=== PATIENT | female | born 1965 | race African-American/Black ===

== ENCOUNTER 2016-08-16 08:43 | Emergency (ER) | payer SELFPAY ==
[~2016-08-16] VITALS: Ht 149.9 cm; Wt 59.4 kg
[~2016-08-16 08:43] MED LIST: CLON.1 PO; NORV10TA PO; NORV5TAB PO
[2016-08-16 08:49] VITALS: BP 164/106; PULSE 78; RESP 16; TEMP 99; O2SAT 99
[2016-08-16] MEDS ORDERED: CLON0.1T PO (08:55)
[2016-08-16] MEDS ORDERED: AMLO10 PO (08:55)
[2016-08-16] MEDS ORDERED: SODIUM CHLOR 0.9% 1000 ML INJ 1,000 ML IV SCH (09:08)
[2016-08-16] MEDS ORDERED: ONDANSETRON HCL 4 MG/2 ML VIAL IVP ONE (09:15)
[2016-08-16] MEDS ORDERED: SODIUM CHLORIDE 0.9% FLUSH 5 ML FLUSH IVF PRN (09:15)
--- NOTE | 2016-08-16 09:16 | PD ---
HPI Chief Complaint: GI Complaint Time Seen by Provider: 09:03 Travel History International Travel<30 days: No Contact w/Intl Traveler<30days: No Traveled to known affect area: No History of Present Illness HPI Patient is a 50 year old female who presents to ER with c/o of not feeling well. Patient reports that since Friday, she has been experiencing hot flashes. Reports "I have been feeling hot and cold" which has been intermittent for the past few days. Patient reports that she has been feeling nauseous with her symptoms. Patient denies any fevers or chills or chest pain or abdominal pain with her symptoms. Patient reports that "I think that I may be starting menopause." Patient also reports that she has noticed that her blood pressure has been elevated, reports that she used to be on Norvasc 10 mg once a day, reports that she has not taken any of these medications for the past year as she has run out of her prescription and has not follow-up with her primary care doctor as she does not have insurance at this time. Patient reports mild frontal headache at this time, denies any vision changes or dizziness at this time. Patient reports that her headache is mild in comparison to her previous headaches. Patient with no other complaints at this time. PFSH Past Medical History Cardiovascular Problems: Yes (htn , should be on meds but is out) Hypertension: Yes ?: Not LMP: on depo Ectopic : Yes Social History Alcohol Use: Yes (occaisional) Tobacco Use: Yes (occaisional) Allergies-Medications (Allergen,Severity, Reaction): Coded Allergies: No Known Allergies (Unverified , 08/16/16) Reported Meds & Prescriptions Reported Meds & Active Scripts Active Macrobid (Nitrofurantoin Monoh/Nitrofur Macro) 100 Mg Cap 100 Mg PO BID 10 Days Amlodipine (Amlodipine Besylate) 10 Mg Tab 10 Mg PO DAILY Reported Clonidine (Clonidine HCl) 0.1 Mg Tab 0.1 Mg PO TID PRN Norvasc (Amlodipine Besylate) 10 Mg Tab 10 Mg PO DAILY Review of Systems General / Constitutional: No: Fever Eyes: No: Visual changes HENT: Positive: Headaches, No: Lightheadedness, Neck Pain Cardiovascular: No: Chest Pain or Discomfort Respiratory: No: Shortness of Breath Gastrointestinal: Positive: Nausea, No: Vomiting, Abdominal Pain Genitourinary: No: Dysuria Musculoskeletal: No: Pain Skin: No Rash Neurologic: No: Weakness Psychiatric: No: Depression Endocrine: No: Polydipsia Hematologic/Lymphatic: No: Easy Bruising Physical Exam Narrative GENERAL: No acute distress, nontoxic SKIN: Warm and dry. HEAD: Atraumatic. Normocephalic. EYES: Pupils equal and round. No scleral icterus. No injection or drainage. ENT: No nasal bleeding or discharge. Mucous membranes pink and moist. NECK: Trachea midline. No JVD. CARDIOVASCULAR: Regular rate and rhythm. No murmur appreciated. RESPIRATORY: No accessory muscle use. Clear to auscultation. Breath sounds equal bilaterally. GASTROINTESTINAL: Abdomen soft, non-tender, nondistended. Hepatic and splenic margins not palpable. MUSCULOSKELETAL: No obvious deformities. No clubbing. No cyanosis. No edema. NEUROLOGICAL: Awake and alert. No obvious cranial nerve deficits. Motor grossly within normal limits. Normal speech. Cranial nerves to 12 grossly intact with no obvious neuro deficits PSYCHIATRIC: Appropriate mood and affect; insight and judgment normal. Data Data Last Documented VS Vital Signs Date Time Temp Pulse Resp B/P Pulse Ox O2 Delivery O2 Flow Rate FiO2 08/16/16 10:08 72 16 201/119 100 Room Air 08/16/16 08:49 99.0 Orders Complete Blood Count With Diff (08/16/16 09:08) Comprehensive Metabolic Panel (08/16/16 09:08) Urinalysis - C+S If Indicated (08/16/16 09:08) Iv Access Insert/Monitor (08/16/16 09:08) Ecg Monitoring (08/16/16 09:08) Ondansetron Inj (Zofran Inj) (08/16/16 09:15) Sodium Chlor 0.9% 1000 Ml Inj (Ns 1000 M (08/16/16 09:08) Sodium Chloride 0.9% Flush (Ns Flush) (08/16/16 09:15) Electrocardiogram (08/16/16 09:08) Ed Urine Pregnancytest Poc (08/16/16 09:08) Amlodipine (Norvasc) (08/16/16 09:15) Chest, Single Ap (08/16/16 09:16) Urine Culture (08/16/16 09:25) Ceftriaxone Inj (Rocephin Inj) (08/16/16 10:15) Labs Laboratory Tests Test 08/16/16 08/16/16 09:20 09:25 White Blood Count 4.6 TH/MM3 Red Blood Count 4.56 MIL/MM3 Hemoglobin 14.6 GM/DL Hematocrit 45.2 % Mean Corpuscular Volume 99.1 FL Mean Corpuscular Hemoglobin 32.0 PG Mean Corpuscular Hemoglobin 32.3 % Concent Red Cell Distribution Width 14.6 % Platelet Count 232 TH/MM3 Mean Platelet Volume 8.8 FL Neutrophils (%) (Auto) 56.1 % Lymphocytes (%) (Auto) 31.6 % Monocytes (%) (Auto) 8.7 % Eosinophils (%) (Auto) 2.6 % Basophils (%) (Auto) 1.0 % Neutrophils # (Auto) 2.7 TH/MM3 Lymphocytes # (Auto) 1.4 TH/MM3 Monocytes # (Auto) 0.4 TH/MM3 Eosinophils # (Auto) 0.1 TH/MM3 Basophils # (Auto) 0.0 TH/MM3 CBC Comment DIFF FINAL Differential Comment Sodium Level 140 MEQ/L Potassium Level 3.6 MEQ/L Chloride Level 106 MEQ/L Carbon Dioxide Level 25.7 MEQ/L Anion Gap 8 MEQ/L Blood Urea Nitrogen 11 MG/DL Creatinine 0.64 MG/DL Estimat Glomerular Filtration 120 ML/MIN Rate Random Glucose 86 MG/DL Calcium Level 9.5 MG/DL Total Bilirubin 0.4 MG/DL Aspartate Amino Transf 64 U/L (AST/SGOT) Alanine Aminotransferase 126 U/L (ALT/SGPT) Alkaline Phosphatase 55 U/L Total Protein 8.6 GM/DL Albumin 3.8 GM/DL Urine Collection Type CLEAN CATCH Urine Color YELLOW Urine Turbidity MOD Urine pH 5.5 Urine Specific [place] 1.030 Urine Protein 100 mg/dL Urine Glucose (UA) NEG mg/dL Urine Ketones NEG mg/dL Urine Occult Blood LARGE Urine Nitrite NEG Urine Bilirubin NEG Urine Leukocyte Esterase TRACE Urine RBC 50-99 /hpf Urine WBC 25-49 /hpf Urine WBC Clumps FEW Urine Squamous Epithelial > 8 /hpf Cells Urine Transitional Epithelial 6-8 /hpf Cells Urine Bacteria MOD /hpf Microscopic Urinalysis Comment CULTURE INDICATED Urine Collection Time 09:25 MDM Medical Decision Making Medical Screen Exam Complete: Yes Emergency Medical Condition: Yes Interpretation(s) EKG at 09: Normal sinus rhythm at 60 beats a minute, QT/QTc 404/418, no acute ST or T-wave changes Vital Signs Date Time Temp Pulse Resp B/P Pulse Ox O2 Delivery O2 Flow Rate FiO2 08/16/16 08:49 99.0 78 16 164/106 99 Differential Diagnosis Menopause, electrolyte abnormality, accelerated hypertension, hypertensive urgency, , viral syndrome, influenza Narrative Course Patient is a 50-year-old female who presents to emergency room with complaints of hot flashes since Friday. Patient reports that she has been having intermittent "hot and cold spells" for the past few days. Patient believes that she is undergoing menopause at this time, reports that she does not have a primary care doctor as she does not have insurance at this time, reports that she wanted to make sure that everything was okay. Patient also reports that she has history of hypertension, reports that she has not had her Norvasc 10 mg in the past year as she has no insurance and no primary care doctor to prescribe her her medications. Patient reports that she has had a mild headache , requests a refill on her Norvasc prescription. Overall, patient is well-appearing. Patients blood pressure is elevated, plan to restart patient on her Norvasc 10 mg. Patient with the benign neuro exam at this time, we'll obtain labs to evaluate for end organ damage. Abdomen is soft , nontender, nondistended, no peritoneal signs - will obtain abdominal labs and monitor patient. In the meantime, patient is tolerating fluids, will give patient antiemetics EKG: nsr at 60bpm, no acute st or t wave changes WBC 4.6 Hemoglobin 14.6 Hematocrit 45.2 Platelets 232 Sodium 140 Chloride 106 Potassium 3.6 Carbon dioxide 25.7 BUN 11 Creatinine 0.64 UA: Positive for large occult blood, trace of esterase, 25-49 white blood cells , moderate bacteria, patient with UTI - will give dose of rocephin and send patient home with macrobid chest xray: no acute cardiopulmonary abnormality Patient reevaluated, patient reports that she is feeling much better at this time. Patient laughing and smiling on re-evaluation. I reviewed all labs and all studies with patient detail. Signs and symptoms of when to return to emergency room was reviewed with her in detail. Patient return to emergency room if symptoms progress or worsen or return Diagnosis Primary Impression: Hypertension Qualified Code: I10 - Essential hypertension Additional Impression: UTI (urinary tract infection) Qualified Code: N30.01 - Acute cystitis with hematuria Patient Instructions: General Instructions Departure Forms: Tests/Procedures, Work Release Enter return to work date: Aug 19, 2016 Additional Instructions: Please follow-up in the primary care doctor Please follow-up with all cultures from today Return to emergency room as needed or if symptoms continue or worsen or progress Please take all medications as prescribed Med/Other Pt SpecificInfo: Prescription(s) given Scripts Nitrofurantoin Monohydrate Macrocrystals (Macrobid)100 Mg [id number] Mg PO BID 10 Days Ref 0 Prov:Sushma Velásquez DO 08/16/16 Amlodipine 10 Mg Tab10 Mg PO DAILY #30 TAB Ref 0 Prov:Sushma Velásquez DO 08/16/16 Disposition: 01 DISCHARGE HOME Condition: Stable Sushma Velásquez DO Aug 16, 2016 09:16
[2016-08-16 09:37] LABS: BLOOD, URINE LARGE (NEG); GLUCOSE,URINE NEG (NEG); KETONE, URINE NEG (NEG); NITRITE,URINE NEG (NEG); PH, URINE 5.5 (5.0-8.5)
[2016-08-16 09:40] LABS: AUTOMATED NEUTROPHIL # 2.7 TH/MM3 (1.8-7.7); EOSINOPHIL # 0.1 TH/MM3 (0-0.4); EOSINOPHIL % 2.6 % (0.0-4.0); HEMATOCRIT 45.2 % (35.0-46.0); HEMO FLAGS DIFF FINAL; LYMPH % 31.6 % (9.0-44.0); LYMPHOCYTE # 1.4 TH/MM3 (1.0-4.8); MEAN CELL VOLUME 99.1 FL (80.0-100.0); MEAN CORPUSCULAR HGB CONC 32.3 % (32.0-36.0); MONO % 8.7 % (0.0-8.0); NEUT % 56.1 % (16.0-70.0); PLATELET COUNT 232 TH/MM3 (150-450); RED BLOOD COUNT 4.56 MIL/MM3 (4.00-5.30); RED CELL DISTRIBUTION WIDTH 14.6 % (11.6-17.2); WHITE BLOOD COUNT 4.6 TH/MM3 (4.0-11.0)
[2016-08-16 09:45] LABS: METHOD OF COLLECTION CLEAN CATCH; SQUAMOUS EPITHELIAL CELL URINE > 8 /hpf (0-5); URINE COLOR YELLOW (YELLW/STRAW)
[2016-08-16 09:46] LABS: BACTERIA, URINE MOD /hpf; COMMENT (UR) CULTURE INDICATED; CULTURE IF INDICATED CULTURE INDICATED
--- NOTE | 2016-08-16 09:50 | RADHPO ---
EXAM DATE/TIME: 08/16/2016 09:21 [facility] COMPARISON: CHEST SINGLE AP, March 02, 2015, 13:32. INDICATIONS : Short of breath MEDICAL HISTORY : None. SURGICAL HISTORY : None. ENCOUNTER: Initial ACUITY: 4 - 6 days PAIN SCORE: 3/10 LOCATION: Bilateral chest FINDINGS: Portable AP view of the chest demonstrates a normal-sized cardiac silhouette. No effusion, consolidat ion, or pneumothorax is visualized. The bones and soft tissues demonstrate no acute abnormality. CONCLUSION: No acute cardiopulmonary abnormality is identified. Tye aSinz MD on August 16, 2016 at 9:48 Board Certified Radiologist. This report was verified electronically.
[2016-08-16 09:55] LABS: CHLORIDE 106 MEQ/L (98-107); POTASSIUM 3.6 MEQ/L (3.5-5.1); SODIUM (NA) 140 MEQ/L (136-145)
[2016-08-16 09:56] LABS: ANION GAP 8 MEQ/L (5-15); BICARBONATE 25.7 MEQ/L (21.0-32.0); BLOOD UREA NITROGEN 11 MG/DL (7-18)
[2016-08-16 09:59] LABS: ALT (GPT) 126 U/L (10-53); AST (GOT) 64 U/L (15-37); GLOMERULAR FILTRATION RATE 120 ML/MIN (>89)
[2016-08-16 10:02] LABS: ALKALINE PHOSPHATASE 55 U/L (45-117)
[2016-08-16] MEDS ORDERED: MACR100C2 PO (10:03)
[2016-08-16] MEDS ORDERED: AMLO10TA2 PO (10:03)
[2016-08-16 10:08] VITALS: BP 201/119; PULSE 72; RESP 16; O2SAT 100
[2016-08-16 10:14] LABS: TOTAL BILIRUBIN ADULT 0.4 MG/DL (0.2-1.0)
[2016-08-16] MEDS ORDERED: cefTRIAXone INJ 1,000 MG in SODIUM CHLORIDE 0.9% INJ 100 ML IV ONE (10:15)
[2016-08-16 11:21] VITALS: BP 197/110; PULSE 71; RESP 16; O2SAT 99
--- NOTE | 2016-08-16 18:52 | EKG ---
Date Performed: 08/16/2016 Time Performed: 09:21:42 PTAGE: 50 years EKG: Sinus rhythm Normal ECG PREVIOUS TRACING : 03/02/2015 13.23 Compared to prior tracing no significant change DOCTOR: Harry Chávez Interpretating Date/Time 08/16/2016 18:51:39
== END 2016-08-16 11:34 | disposition home or self-care (01) ==
LOC: PHED 08:43
DX: I10 Essential (primary) hypertension (principal); N39.0 Urinary tract infection, site not specified; R51 Headache; Z72.0 Tobacco use
CPT/HCPCS: 71010; 80053; 81001; 84703; 85025; 87086; 93005; 96361; 96365; 96375; 99284; J0696; J2405; J7030